=== PATIENT | female | born 1990 | race Caucasian/White ===

== ENCOUNTER 2018-08-16 16:00 | Emergency (ER) | payer MEDICAID ==
[~2018-08-16] VITALS: Ht 154.9 cm; Wt 45.4 kg
[2018-08-16 16:05] VITALS: BP 154/100
--- NOTE | 2018-08-16 16:19 | NUR ---
27 yo f bib self w/ c/o bl lower quadrant pain that is sharp 9/10 radiating to her back x 20 minutes. pt presents to ed crying and grasping site. pt denies n/v/d, denies dysuria. abd soft, non-tender. bowel sounds active x 4 quadrants. pt does not present w/ a fever at this time. PATIENT STATES PAIN OF 9/10 AT THIS TIME; VSS; PATIENT POSITIONED FOR COMFORT; HOB ELEVATED; BEDRAILS UP X2; BED DOWN. ER MD MADE AWARE OF PT STATUS.
[2018-08-16] MEDS ORDERED: NACL 0.9% 1,000 ML IV ONE (16:45)
[2018-08-16] MEDS ORDERED: KETOROLAC 30 MG/ML VIAL IVP ONE (16:45)
[2018-08-16 17:14] LABS: BASOPHILS % (AUTO) 0.2 % (0.0-2.0); EOSINOPHILS % (AUTO) 0.5 % (0.0-4.0); HEMATOCRIT 40.5 % (36-48); HEMOGLOBIN 13.4 g/dL (12.0-16.0); LYMPHOCYTES % (AUTO) 19.1 % (20.5-51.1); MEAN CORPUSCULAR HEMOGLOBIN 31 pg (27-31); MEAN CORPUSCULAR HGB CONC 33 g/dL (33-37); MEAN CORPUSCULAR VOLUME 93.3 fL (80-94); MONOCYTES # (AUTO) 0.5 K/uL (0.8-1.0); MONOCYTES % (AUTO) 5.2 % (1.7-9.3); NEUTROPHILS # (AUTO) 7.8 K/uL (1.8-7.7); PLATELET COUNT (AUTO) 237 K/uL (140-450); RED BLOOD CELL COUNT(AUTO) 4.34 MIL/uL (4.20-5.40); RED CELL DISTRIBUTION WIDTH 13.9 % (11.6-13.7); WHITE BLOOD COUNT (AUTO) 10.4 K/uL (4.8-10.8)
[2018-08-16 17:30] LABS: ANION GAP 9.8 (8-16); CARBON DIOXIDE 29.1 mmol/L (21-32); CREATININE 0.7 mg/dL (0.6-1.3); POTASSIUM 3.9 mmol/L (3.5-5.1)
--- NOTE | 2018-08-16 17:44 | NUR ---
Patient being evaluated by physician at bedside.
[2018-08-16 17:49] LABS: APPEARANCE,URINE HAZY (CLEAR); BILIRUBIN,URINE NEGATIVE (NEGATIVE); BLOOD, URINE NEGATIVE (NEGATIVE); COLOR,URINE YELLOW (YELLOW); LEUKOCYTE ESTERASE ,URINE NEGATIVE (NEGATIVE); NITRITE, URINE NEGATIVE (NEGATIVE); UGLUCOSE NEGATIVE (NEGATIVE)
[2018-08-16 18:25] VITALS: BP 119/82
--- NOTE | 2018-08-16 18:25 | NUR ---
Patient discharged with v/s stable. Written and verbal after care instructions given and explained. Patient alert, oriented and verbalized understanding of instructions. Ambulatory with steady gait. All questions addressed prior to discharge. ID band removed. Patient advised to follow up with PMD. Rx of MOTRIN, TRAMADOL given. Patient educated on indication of medication including possible reaction and side effects. Opportunity to ask questions provided and answered.
[2018-08-16 19:39] LABS: RBC,URINE 0-5 (RARE) /HPF (0-5); WBC,URINE 6-15 (FEW) /HPF (0-5)
== END 2018-08-16 18:25 | disposition home or self-care (01) ==
LOC: MED 16:00
DX: N83.201 Unspecified ovarian cyst, right side (principal); N88.8 Other specified noninflammatory disorders of cervix uteri
CPT/HCPCS: 36415; 76856; 80048; 81001; 81025; 84702; 85025; 87086; 96374; 99285; J1885; Q0092; J7030

== ENCOUNTER 2019-04-18 14:31 | Emergency (ER) | payer MEDICAID ==
[~2019-04-18] VITALS: Ht 154.9 cm; Wt 47.6 kg
--- NOTE | 2019-04-18 14:31 | NUR ---
Patient SHERRI JUAREZ for pre-booking medical screening examination, transferred to chair E. RN evaluating patient.
[2019-04-18 14:35] VITALS: BP 112/74
[2019-04-18] MEDS ORDERED: KETOROLAC 60 MG/2 ML VIAL IM ONE (14:45)
--- NOTE | 2019-04-18 14:45 | NUR ---
DR VIEIRA EVALUATING PT.
--- NOTE | 2019-04-18 15:09 | NUR ---
robotics technician at bedside.
[2019-04-18] MEDS ORDERED: HYDROcodone/APAP 5/325 MG 1 TAB TAB PO ONE (15:40)
--- NOTE | 2019-04-18 16:01 | NUR ---
Dr. Mullen evaluating patient at bedside.
--- NOTE | 2019-04-18 17:35 | NUR ---
pt in bed resting, vss, [place] pd officer at bedside, ct cervical spine pending.
[2019-04-18 18:01] VITALS: BP 111/62
--- NOTE | 2019-04-18 18:01 | NUR ---
Patient discharged with v/s stable. Written and verbal after care instructions given and explained. Patient alert, oriented and verbalized understanding of instructions. Ambulatory with steady gait in custody of [facility]. All questions addressed prior to discharge. ID band removed. Patient advised to follow up with PMD. Rx of norco given. Patient educated on indication of medication including possible reaction and side effects. Opportunity to ask questions provided and answered.
== END 2019-04-18 18:00 ==
LOC: MED 14:31
DX: R07.89 Other chest pain (principal); Z02.89 Encounter for other administrative examinations; Z98.890 Other specified postprocedural states; V89.2XXA Person injured in unspecified motor-vehicle accident, traffic, initial encounter; Y93.89 Activity, other specified; Y92.89 Other specified places as the place of occurrence of the external cause; Y99.8 Other external cause status
CPT/HCPCS: 70450; 71045; 72125; 81002; 81025; 96372; 99284; J1885

== ENCOUNTER 2020-02-02 19:55 | Emergency (ER) | payer MEDICAID ==
[~2020-02-02] VITALS: Ht 154.9 cm; Wt 57.6 kg
[2020-02-02 20:02] VITALS: BP 127/83
[2020-02-02] MEDS ORDERED: DEXAMETHASONE 10 MG/ML VIAL PO ONE (21:05)
[2020-02-02] MEDS ORDERED: KETOROLAC 30 MG/ML VIAL IM ONE (21:05)
[2020-02-02] MEDS ORDERED: cefTRIAXone 1,000 MG in LIDOCAINE MPF 1% 2.1 ML IM ONE (21:05)
[2020-02-02] MEDS ORDERED: cefTRIAXone 1,000 MG VIAL ONE (21:08)
[2020-02-02] MEDS ORDERED: LIDOCAINE MPF 1% 5 ML ONE (21:09)
[2020-02-02 21:33] VITALS: BP 127/83
== END 2020-02-02 21:31 | disposition home or self-care (01) ==
LOC: MED 19:55
DX: J02.9 Acute pharyngitis, unspecified (principal)
CPT/HCPCS: 96372; 99284; J0696; J1100; J1885; J2001

== ENCOUNTER 2021-03-21 09:54 | Emergency (ER) | payer MEDICAID ==
[~2021-03-21] VITALS: Ht 154.9 cm; Wt 45.4 kg
--- NOTE | 2021-03-21 10:08 | NUR ---
AMBULATED TO BED 12 WITH STEADY GAIT
[2021-03-21 10:10] VITALS: BP 90/51
--- NOTE | 2021-03-21 10:21 | NUR ---
30 Y/O FEMALE C/O LOWER BACK PAIN S/P FALL X 3 DAYS. PT WAS RIDING A QUAD, FELL AND LANDED ON HER SACRUM. PT DENIES HITTING HEAD AND LOC. NO OBVIOUS DEFORMITIES. SKIN IS WARM DRY AND INTACT. PT ABLE TO AMBULATE, FULL ROM OF LOWER EXTEMETIES. PT RATES PAIN 8/10 THAT SHE DESCRIBES BURNING AND CONSTANT THAT IS NONRADIATING. PT STATES PAIN IS WORSE WITH SITTING. PT DENIES TAKING ANYTHING FOR PAIN. PT A/O X4 WITH EVEN AND UNLABORED RESPIRATIONS. PMH: DENIES NKA
--- NOTE | 2021-03-21 10:36 | NUR ---
PATIENT AMBULATED TO RESTROOM FOR COLLECTION OF URINE
[2021-03-21] MEDS ORDERED: ACETAMINOPHEN EXTRA STRENGTH 500 MG TAB PO ONE (10:50)
[2021-03-21] MEDS ORDERED: KETOROLAC 30 MG/ML VIAL IM ONE (10:50)
--- NOTE | 2021-03-21 11:01 | NUR ---
PT TAKEN TO CT VIA W/C
--- NOTE | 2021-03-21 11:12 | NUR ---
PATIENT RETURNED FROM RADIOLOGY VIA WHEELCHAIR
[2021-03-21 11:57] VITALS: BP 90/51
--- NOTE | 2021-03-21 11:58 | NUR ---
Patient discharged with v/s stable. Written and verbal after care instructions ABOUT TAILBONE INJURY given and explained. Patient verbalized understanding. Ambulatory with steady gait. All questions addressed prior to discharge. Advised to follow up with PMD.
== END 2021-03-21 11:58 | disposition home or self-care (01) ==
LOC: MED 09:54
DX: S32.10XA Unspecified fracture of sacrum, initial encounter for closed fracture (principal); V98.8XXA Other specified transport accidents, initial encounter; Y93.I9 Activity, other involving external motion; Y92.89 Other specified places as the place of occurrence of the external cause; Y99.8 Other external cause status
CPT/HCPCS: 72220; 81025; 96372; 99283; J1885

== ENCOUNTER 2021-12-30 19:25 | Emergency (ER) | payer MEDICAID ==
[~2021-12-30] VITALS: Ht 154.9 cm; Wt 44.9 kg
[2021-12-30 19:36] VITALS: BP 139/99
--- NOTE | 2021-12-30 19:42 | NUR ---
patient to [facility] ambulatory
--- NOTE | 2021-12-30 19:56 | NUR ---
patient to XR
--- NOTE | 2021-12-30 22:33 | NUR ---
ermd examining pt
--- NOTE | 2021-12-30 23:15 | NUR ---
PT LEFT WITHOUT D/C PAPERS
--- NOTE | 2021-12-31 00:02 | NUR ---
Stefany easley in [place] - 12/31/21 at 0002 by ZURDO PT LEFT WITHOUT D/C PAPERS
== END 2021-12-30 23:15 | disposition home or self-care (01) ==
LOC: MED 19:25
DX: S60.221A Contusion of right hand, initial encounter (principal); W22.8XXA Striking against or struck by other objects, initial encounter; Y93.89 Activity, other specified; Y92.810 Car as the place of occurrence of the external cause; Y99.8 Other external cause status
CPT/HCPCS: 73130; 99283